=== PATIENT | female | born 1940 | race Caucasian/White ===

== ENCOUNTER → 2017-02-02 | Outpatient (CLI) | payer OTHER ==
[~2017-02-02] MED LIST: AMIO200T4 PO; ASPI-232 PO; BUME1TAB PO; DOCU-94 PO; DOXY100C76 PO; FLUC150T PO; FLUO10CA48 PO; FNTTP25 TD; LACT1CAP22 PO; METO2.5T PO; MULT-17 PO; NITR-5 PO; ONDA4TAB46 PO; PENI-82 PO; POTA10CA28 PO; SPIR25TA PO; TRAM-10 PO; TRAZ50TA35 PO
== END | disposition home or self-care (01) ==
LOC: C.PATHSPEC 17:19
PROVIDERS: ATTEND Surgery
DX: K62.9 Disease of anus and rectum, unspecified (principal)